=== PATIENT | male | born 1975 | race Caucasian/White ===

== ENCOUNTER 2025-05-08 13:11 | Emergency (ER) | payer BC, SELFPAY ==
[2025-05-08 13:15] VITALS: BP 137/111; PULSE 98; RESP 18; TEMP 36.6; O2SAT 96
--- NOTE | 2025-05-08 13:30 | DI.RAD_ITS ---
Exam(s) XR SHOULDER LT COMPLETE 2+V EXAM: XR SHOULDER LT COMPLETE 2+V CLINICAL HISTORY: Fall, Deformity. TECHNIQUE: 2D digital imaging was performed of the left shoulder. Four images were obtained. AP, Grashey, Y-view and axillary views were obtained. COMPARISON: No exams were available for comparison FINDINGS: BONES: No acute fracture is present. No bony destructive lesion is seen. JOINTS: The inferior border of the clavicle is elevated beyond the superior border of the acromion consistent with a type 3 AC joint separation. There is no evidence of a glenohumeral joint dislocation. SOFT TISSUE: Normal. IMPRESSION: 1. Type 3 left AC joint separation. 2. The preliminary [facility] report was reviewed. DATA REPOSITORY: RADIATION DOSE DELIVERED:
--- NOTE | 2025-05-08 13:31 | W.ED.GENAD ---
Discharge Plan Disposition Patient Disposition: Home Condition: Stable Discharge Details Clinical Impression: Acromioclavicular joint separation, type 3 Primary Care Provider: Unknown,Unknown ED Provider: Kaylie Pacheco Home Meds and New Rx's Prescriptions: No Action No Known Home Meds Discharge Instructions Instructions: shoulder Additional Instructions: At this time it appears that you have a AC joint seperation. This is usually caused from a ligament tear in your shoulder. The treatment is usually sling for 2-3 weeks and ice. However, please follow up with orthopedics for further evaluation. No evidence of fractures or broken bones on the x-ray. Please wear the sling daily for 2-3 weeks. Please take Tylenol or Ibuprofen with food every 4-6 hours as needed for pain and swelling. Follow up with orthopedics/primary care provider in 3-5 days. Return to ED sooner if any worsening or concerns. Stand Alone Forms: Portal Information Referrals: Pino Batista MD [ [facility] STAFF PHYSICIAN, Orthopaedic Surgical] - 1 week Referral Note: Call for an appointment Clinical Impression: Acromioclavicular joint separation, type 3 HPI General Mode of arrival: ambulatory. Date/Time Provider Initiated Documentation: 05/08/25 13:12. Limitations to Documentation: no limitations. Information obtained by: patient, RN notes reviewed and old records reviewed. HPI Narrative: 49 year old male presents to the ER after falling while snow boarding. C/O left shoulder pain. Was wearing a helmet, denies hitting his head or LOC. Denies any neck or back pain, no chest pain or SOB. Distal CMS intact. Related Data Home Medications ?Medication ?Instructions ?Recorded ?Confirmed Unknown [No Known Home Meds] 05/08/25 05/08/25 Allergies Allergy/AdvReac Type Severity Reaction Status Date / Time No Known Allergies Allergy Unverified 05/08/25 13:19 General Stated Complaint: Orthopedic GIOVANNA: 4 Review of Systems Constitutional Constitutional: Denies headache(s) ENT Ears, Nose, Mouth, and Throat: Denies headache(s) and Denies neck pain Musculoskeletal Musculoskeletal: Reports as per HPI, Denies back pain, Reports deformity, Reports arthralgias, Reports joint swelling, Denies neck pain and Denies numbness Neurologic Neurologic: Denies headache(s) and Denies numbness Exam Narrative Exam Narrative: General: Well Developed, Awake and Alert, conversant. Skin: Warm and Dry HEENT: Head: No palpable deformities, Normocephalic Eyes: Pupils PERRLA, EOM's intact. No periorbital eccymosis or step off Ears: Canal patent. Tympanic membranes are clear . No morgan's sign, no hemptympanum. Nose/Face: Atraumatic. Facial bones nontender to palpation and stable with manipulation. Mouth/Throat: No intraoral trauma. Teeth and mandible are intact. Neck: No midline tenderness, no step off, no deformity to palpation of C-spine. Trachea midline. Chest: No surface trauma. Nontender without crepitus or deformity. Lungs clear to ausculatation bilaterally. Heart: RRR, no rubs, murmurs or gallop. Abdomen: No abrasions, ecchymosis, or surface trauma. Nondistended. Nontender to palpation no guarding, rebound, or rigidity. Pelvis: Nontender to palpation and stable to compression. Femoral pulses strong and equal Extremities: Does have some swelling noted to the proximal surface of his left shoulder, distal CMS intact, no surface trauma. Sensation intact. Peripheral pulses intact and equal. Neuro: ANO x4, GCS 15, cranial nerves II through XII intact. Motor and sensory exam nonfocal. Reflexes are symmetric. Course Vital Signs Vital signs: Vital Signs Temperature 36.6 C 05/08/25 13:15 Pulse 98 H 05/08/25 13:15 Respiratory Rate 18 05/08/25 13:15 Blood Pressure 137/111 H 05/08/25 13:15 Pulse Oximetry 96 05/08/25 13:15 Temperature 36.6 C 05/08/25 13:15 Temperature Source Oral 05/08/25 13:15 Pulse 98 H 05/08/25 13:15 Respiratory Rate 18 05/08/25 13:15 Blood Pressure 137/111 H 05/08/25 13:15 Blood Pressure Position Sitting 05/08/25 13:15 Pulse Oximetry 96 05/08/25 13:15 Oxygen Delivery Method Room Air 05/08/25 13:15 Oxygen Flow Rate 0 05/08/25 13:15 Medical Decision Making 49 year old male presents to the ER after falling while snow boarding. C/O left shoulder pain. Was wearing a helmet, denies hitting his head or LOC. Denies any neck or back pain, no chest pain or SOB. Distal CMS intact. XR left shoulder ordered. Differential diagnose includes not limited to dislocation, fracture, occult fracture. X-ray shows AC joint dislocation, provided patient with a sling. Informed by the fuel verification technician that patient is complaining of nausea and pain. Will give him Zofran and Tylenol. Patient is driving. Patient discharged home with his family was ambulatory upon discharge from the department. Hemodynamically stable throughout remainder of stay. Patient is from out of town will give him a disk with his images on it and have him follow-up with orthopedics. He verbalized understanding. This text was generated using [employer] dictation system, please disregard any oddities of phrase or misspellings. Imaging Data Radiologic Study: Imaging: X-Ray Radiologist's impression: FINDINGS: Bones/joints: The clavicle is elevated with respect to the acromion consistent with acromioclavicular dissociation.. Narrowing of the glenohumeral joint consistent with degenerative changes.. No subluxation or dislocation. Soft tissues: Normal. IMPRESSION: 1. The clavicle is elevated with respect to the acromion consistent with acromioclavicular dissociation.. 2. Narrowing of the glenohumeral joint consistent with degenerative changes.. 3. No subluxation or dislocation. Thank you for allowing us to participate in the care of your patient. Dictated and Authenticated by: Jayy Loera MD [facility] All Active Problems (Updated 05/08/25 @ 14:25 by Kaylie Pacheco NP) Acromioclavicular joint separation, type 3 (Acute) Social History Smoking/Tobacco Use Status: Never Smoking risk assessment performed?: Yes Alcohol Intake: current Alcohol Intake frequency: a few times a week Alcohol type: hard liquor Substance use type: marijuana
--- NOTE | 2025-05-08 14:51 | DI.[facility]_ITS ---
PROCEDURE INFORMATION: Exam: XR Left Shoulder Exam date and time: 05/08/2025 1:45 PM Age: 49 years old Clinical indication: Injury or trauma; Fall; Blunt trauma (contusions or hematomas); Shoulder; Left TECHNIQUE: Imaging protocol: Radiologic exam of the left shoulder. Views: 2 or more views. COMPARISON: No relevant prior studies available. FINDINGS: Bones/joints: The clavicle is elevated with respect to the acromion consistent with acromioclavicular dissociation.. Narrowing of the glenohumeral joint consistent with degenerative changes.. No subluxation or dislocation. Soft tissues: Normal. IMPRESSION: 1. The clavicle is elevated with respect to the acromion consistent with acromioclavicular dissociation.. 2. Narrowing of the glenohumeral joint consistent with degenerative changes.. 3. No subluxation or dislocation. Dictated and Authenticated by: Jayy Loera MD. Orderin Junior Lott MD
[2025-05-08] MEDS: Ondansetron O.D.T. 4 MG TABEF PO (15:07)
[2025-05-08] MEDS: Acetaminophen 500 MG TAB 1000 MG PO (15:07)
== END 2025-05-08 15:08 | disposition home or self-care (01) ==
LOC: ER 14:31
PROVIDERS: Emergency Provider Registered Nurse Emergency
DX: S43.102A Unspecified dislocation of left acromioclavicular joint, initial encounter (principal); Y93.23 Activity, snow (alpine) (downhill) skiing, snowboarding, sledding, tobogganing and snow tubing
CPT/HCPCS: 99283 ×2; 73030